=== PATIENT | male | born 1965 | race Caucasian/White ===

== ENCOUNTER 2021-12-30 12:51 | Outpatient (CLI) | payer OTHER, SELFPAY ==
--- NOTE | 2021-12-30 13:51 | NEURO ---
NCS and/or EMG Patient Report Ordering Doctor: Florencio Rosas DATE OF SERVICE: 12/30/21 Fracisco presents for electrodiagnostic testing of the right upper limb. He reports numbness and tingling in the right hand for the past several months. Electrodiagnostic findings: Right median motor nerve demonstrates normal distal latency, amplitude and borderline reduced conduction velocity right ulnar responses within normal limits, including conduction across the elbow. Normal median ulnar F-wave. Prolonged median sensory latency at the wrist. Normal radial and ulnar sensory responses. On needle EMG, no evidence of denervation is noted in any muscles tested. Motor unit action potentials of normal amplitude and duration. Electrodiagnostic impression: This is an abnormal study in the right upper limb 1. Electrodiagnostic findings suggestive of right-sided median mononeuropathy. This consistent with a mild right carpal tunnel syndrome. 2. There is no electrodiagnostic evidence for cervical radiculopathy
== END 2021-12-30 23:59 | disposition home or self-care (01) ==
LOC: PSN 12:57
PROVIDERS: PCP Family Medicine; Referring Provider Orthopaedic Surgery; Visit Provider Orthopaedic Surgery
DX: M48.02 Spinal stenosis, cervical region (principal); R20.2 Paresthesia of skin
CPT/HCPCS: 95886; 95910

== ENCOUNTER → 2023-11-14 | Outpatient (CLI) | payer OTHER, SELFPAY ==
--- NOTE | 2023-11-14 16:15 | MRI_ITS ---
STUDY: MRI LUMBAR SPINE WITHOUT CONTRAST REASON FOR EXAM: Male, 58 years old. RADICULOPATHY TECHNIQUE: Standardized fat and water weighted pulse sequences were obtained in the sagittal and axial planes. COMPARISON: None FINDINGS: T12-L1: Normal endplates. Narrowed disc space with desiccation of disc and minor annular bulge.. Normal bilateral facet joints. Normal central canal and bilateral lateral recesses. Normal bilateral intervertebral neural foramina. Normal lumbar lordosis. There is no substantial scoliosis. Normal conus medullaris that terminates at T12 L1-2: Normal endplates. Narrowed disc space with desiccation of disc and mild annular bulge.. Normal bilateral facet joints. Normal central canal and bilateral lateral recesses. Normal bilateral intervertebral neural foramina. L2-3: Normal endplates. Normal disc height, hydration and morphology. Normal bilateral facet joints. Normal central canal and bilateral lateral recesses. Normal bilateral intervertebral neural foramina. L3-4: Normal endplates. Normal disc height, desiccation and minor annular bulge with right foraminal disc protrusion.. Facet arthropathy and thickening of ligamenta flava.. Normal central canal and bilateral lateral recesses. Moderate left neural foraminal stenosis and moderate to severe narrowing on the right. L4-5: Degenerative endplate changes. Narrowed disc space with desiccation of the disc and minimal bulging disc osteophyte complex and tiny left paracentral disc protrusion. Facet arthropathy more pronounced on the right.. Normal central canal and bilateral lateral recesses. Severe bilateral neural foraminal stenosis L5-S1: Grade 1 retrolisthesis . Degenerative endplate changes.. Narrowed disc space with desiccation of disc and minor bulging disc osteophyte complex.. Facet arthropathy Normal central canal and bilateral lateral recesses. Moderate bilateral neural foraminal encroachment. Normal visualized sacral ala. Normal visualized paraspinous soft tissue structures. MRI/Spine Lumbar (Routine) IMPRESSION: No evidence for acute fracture or other significant bony pathology.. Multilevel spinal stenosis secondary to disc disease and bony hypertrophy most severe at L4-5. Findings as above Electronically Signed: Florencio Alexander MD at 16:41 EST Reading Location ID and State: [address] [place] [address] Tel , Service support ,
== END | disposition home or self-care (01) ==
LOC: MRI 14:38
PROVIDERS: PCP Family Medicine; Referring Provider Anesthesiology Pain Medicine; Visit Provider Anesthesiology Pain Medicine
DX: M54.16 Radiculopathy, lumbar region (principal)
CPT/HCPCS: 72148

== ENCOUNTER → 2024-08-04 | Outpatient (CLI) | payer OTHER, SELFPAY ==
--- NOTE | 2024-08-04 07:12 | MRI_ITS ---
STUDY: MRI CERVICAL SPINE WITHOUT CONTRAST REASON FOR EXAM: Male, 59 years old. pain rt neck into shoulder TECHNIQUE: Standardized fat and water weighted pulse sequences were obtained in the sagittal and axial planes. COMPARISON: None FINDINGS: Normal foramen magnum and brainstem-cervical cord junction. Normal craniovertebral junction. Normal anterior atlantoaxial articulation. Normal odontoid process. There is straightening of the normal cervical lordosis. No fracture or marrow edema. Disc desiccation is present at all levels. C2-3: Normal endplates. Normal disc height and morphology. Normal central canal and intervertebral neural foramina. C3-4: Normal endplates. Mild disc space narrowing with slight annular bulging. Normal central canal. Mild bilateral foraminal stenosis secondary to uncovertebral facet joint hypertrophy C4-5: Normal endplates. Mild disc space narrowing without bulging or herniation of the disc. Moderate right foraminal stenosis with nerve root compression due to combined uncovertebral facet joint hypertrophy. Normal central canal and left neural foramen. C5-6: Moderate disc space narrowing with a diffuse disc bulge/spur complex causing compression on anterior aspect of the cord and [id number] central canal stenosis. Moderate right and severe left foraminal stenosis with nerve root compression due to combined uncovertebral facet joint hypertrophy. C6-7: Moderate disc space narrowing with minor annular bulging. Endplate spurring. Mild central canal stenosis and mass effect on the anterior aspect of the cord. Moderate right and severe left foraminal stenosis with nerve root compression due to combined uncovertebral facet joint hypertrophy. C7-T1: Normal endplates. Normal disc height, signal and morphology. Normal central canal and intervertebral neural foramina. Normal cervical cord. There is no demonstrated cervical cord syrinx cavity. Normal visualized soft tissue structures. MRI/Spine Cervical (Routine) IMPRESSION: 1. Multilevel degenerative changes, as described above. Electronically Signed: Ezekiel Moore MD at 11:28 EDT ,
== END | disposition home or self-care (01) ==
LOC: MRI 07:01
PROVIDERS: PCP Family Medicine; Referring Provider Anesthesiology Pain Medicine; Visit Provider Anesthesiology Pain Medicine
DX: R16.0 Hepatomegaly, not elsewhere classified (principal)
CPT/HCPCS: 72141